=== PATIENT | male | born 1985 | race American Indian/Alaskan Native ===

== ENCOUNTER 2017-03-18 17:07 | Emergency (ER) | payer SELFPAY ==
--- NOTE | 2017-03-18 21:23 | Emergency Department Report ---
HPI - General Chief Complaint: Upper Respiratory Infection Time Seen by Provider: 03/18/17 21:19 - HPI HPI: Patient here complaining of flulike symptoms 3 days. Also complaining of nonproductive cough. Denies any fever but reports chills. Complaining of body aches. He is also complaining of left flank pain with painful urination but denies any blood in his urine. reports bilateral ear pain. Denies any chest pain or shortness of breath. Pain is 6 out of 10 generalized and achy. Denies any headache. The counter cough and cold without any results. Denies any abdominal pain or nausea or vomiting ED Past Medical Hx - Past Medical History Previous Medical History?: No - Surgical History Past Surgical History?: No - Family History Family history: no significant - Social History Smoking Status: Current Every Day Smoker Substance Use Type: Alcohol - Medications Home Medications: Home Medications Medication Instructions Recorded Confirmed Last Taken Type Cetirizine HCl [ZyrTEC] 10 mg PO QDAY 10 Days #10 capsule 03/18/17 Unknown Rx Fluticasone [Flonase] 1 spray NS QDAY 10 Days #1 bottle 03/18/17 Unknown Rx Ibuprofen [Motrin 600 MG tab] 600 mg PO Q8H PRN #12 tablet 03/18/17 Unknown Rx guaiFENesin/CODEINE [Robitussin AC] 10 ml PO QHS PRN #50 ml 03/18/17 Unknown Rx ED Review of Systems ROS: Stated complaint: FLU LIKE SYMPTOMS Other details as noted in HPI Comment: All other systems reviewed and negative Constitutional: chills. denies: fever ENT: ear pain, congestion. denies: throat pain, dental pain, epistaxis Respiratory: cough. denies: orthopnea, shortness of breath, SOB with exertion, SOB at rest, stridor, wheezing Cardiovascular: denies: chest pain, palpitations, dyspnea on exertion, edema, syncope, paroxysmal nocturnal dyspnea Gastrointestinal: denies: abdominal pain, nausea, vomiting, diarrhea, constipation Genitourinary: dysuria. denies: frequency, hematuria, discharge, testicular pain, testicular mass Musculoskeletal: other (reports left flank pain). denies: back pain, arthralgia Skin: denies: rash Neurological: denies: headache, abnormal gait, vertigo Physical Exam - Physical Exam Vital Signs: Vital Signs 03/18/17 17:34 Temperature 99.8 F H Pulse Rate 89 Respiratory 18 Rate Blood Pressure 124/82 O2 Sat by Pulse 99 Oximetry Vital Signs 03/18/17 03/18/17 17:34 21:39 Temperature 99.8 F H Pulse Rate 89 Respiratory 18 18 Rate Blood Pressure 124/82 O2 Sat by Pulse 99 Oximetry General: This is a 31-year-old male well-nourished well-developed in no acute distress. Physical Exam: Head: Normocephalic, atraumatic, no abrasion, no bruising and no contusion. Eyes: Biateral pupils equal and reactive to light, bilateral EOM intact.. Bilateral conjunctival and sclera without injection, normal accommodation. No nystagmus Mouth: Moist, no pharyngeal exudate or erythema. No peritonsillar abscesses. Uvula is midline and oral airways patent. Ears: Bilateral TM congested without erythema. Bilateral EAC without any redness swelling or drainage. No mastoid bone tenderness Nose: Bilateral nasal turbinates congested with erythema and clear drainage. Maxillary and frontal sinuses non-tender to palpate. Neck: Supple, No Cervical adenopathy, full range of motion and no C-spine tenderness. No swelling or tracheal deviation normal reflexes Cardiovascular: S1, S2. Regular rate and rhythm. No murmur. Capillary refill is less then 3 seconds. Lungs: Clear to auscultate bilaterally. No rhonchi, wheezes or rales. No chest wall tenderness. No chest contusion. No bruising to chest. Dry cough MSK: Strength 5/5 in all extremities. No joint deformity or crepitus. Normal inspection. Full range of motion to all extremities. No laceration, abrasion or ecchymotic area noted. Ambulates without any difficulties Abdomen: Non-tender to palpate in all quadrants, no guarding or rebound tenderness, positive bowel sounds in all quadrants. No CVA tenderness. No hernia, bruit or mass. No rigidity or distention. Extremities: No clubbing, cyanosis or edema. +2 pulses. No neurovascular compromise Skin: Clean, dry and intact. No rash or lesions. Psych: Normal mood and behavior ED Course Vital Signs 03/18/17 17:34 Temperature 99.8 F H Pulse Rate 89 Respiratory 18 Rate Blood Pressure 124/82 O2 Sat by Pulse 99 Oximetry Vital Signs 03/18/17 03/18/17 17:34 21:39 Temperature 99.8 F H Pulse Rate 89 Respiratory 18 18 Rate Blood Pressure 124/82 O2 Sat by Pulse 99 Oximetry - Reevaluation(s) Reevaluation #1: 03/18/17 22:50 Patient given Motrin 800 mg of body aches and low-grade fever. He is able to tolerate oral liquids without any difficulties ED Medical Decision Making - Lab Data Lab Results 03/18/17 Range/Units 21:35 Urine Color Yellow (Yellow) Urine Turbidity Clear (Clear) Urine pH 6.0 (5.0-7.0) Ur Specific [place] 1.030 (1.003-1.030) Urine Protein <15 mg/dl (Negative) mg/dL Urine Glucose (UA) Neg (Negative) mg/dL Urine Ketones Neg (Negative) mg/dL Urine Blood Sm (Negative) Urine Nitrite Neg (Negative) Urine Bilirubin Neg (Negative) Urine Urobilinogen 4.0 (<2.0) mg/dL Ur Leukocyte Esterase Neg (Negative) Urine WBC (Auto) 1.0 (0.0-6.0) /HPF Urine RBC (Auto) 18.0 (0.0-6.0) /HPF U Epithel Cells (Auto) < 1.0 (0-13.0) /HPF Urine Mucus Few /HPF Urine culture pending - Medical Decision Making ED course: Pt here reports upper respiratory infection with urinary burning and left flank pain. Patient urinalysis negative for any infection. Small amount of blood. Patient denies any STD exposure or concern for STD. Urine culture sent and pending. Patient also found to have upper respiratory infection with cough and congestion. I discussed with patient that he has a viral upper respiratory tract infection with cough and congestion and his urinalysis was negative for infection. I discussed with him he will need to follow up with his primary care in 3-5 days and if he does not have one to follow-up with outside medical center. Patient received Motrin 800 mg and ER which relieved is body aches and also able to tolerate oral liquids in emergency room without any nausea or vomiting. Patient discharged home with prescription for Zyrtec, Motrin, Flonase and cough medicine with codeine. Critical care attestation.: If time is entered above; I have spent that time in minutes in the direct care of this critically ill patient, excluding procedure time. ED Disposition Clinical Impression: Upper respiratory infection with cough and congestion, Otalgia, bilateral, Dysuria, Musculoskeletal pain Disposition: [id number] TO HOME OR SELFCARE Is pt being admited?: No Does the pt Need Aspirin: No Condition: Stable Instructions: Upper Respiratory Infection (ED), Acute Cough (ED), Cold Symptoms (ED), Earache (ED), Dysuria (ED), Musculoskeletal Pain (ED) Additional Instructions: Please increase her fluid intake to include water, orange juice and cranberry juice to 2-3 L of liquids per day. Motrin for fever and/or pain Takes Zyrtec and Flonase which will help to relieve her congestion Follow-up with the primary care physician in 3-5 days and if he do not have one follow[facility]up at [facility] Prescriptions: guaiFENesin/CODEINE [Robitussin AC] 10 ml PO QHS PRN #50 ml PRN Reason: Cough Cetirizine HCl [ZyrTEC] 10 mg PO QDAY 10 Days #10 capsule Fluticasone [Flonase] 1 spray NS QDAY 10 Days #1 bottle Ibuprofen [Motrin 600 MG tab] 600 mg PO Q8H PRN #12 tablet PRN Reason: Pain Referrals: [facility] [Outside] - 3-5 Days Forms: Work/School Release Form(ED)
[2017-03-18] MEDS ORDERED: MOTRIN PO ONE (21:25)
[2017-03-18 22:18] LABS: Bilirubin,Urine NEG (Negative); Blood,Urine SM (Negative); Color,Urine Yellow (Yellow); Mucus,Urine FEW /HPF; Nitrite,Urine NEG (Negative); Protein,Urine <15 mg/dL mg/dL (Negative)
[2017-03-18 23:24] VITALS: BP 123/89
== END 2017-03-18 23:29 | disposition home or self-care (01) ==
LOC: ED 17:07
DX: J06.9 Acute upper respiratory infection, unspecified (principal); H92.03 Otalgia, bilateral; R30.0 Dysuria; M79.1 Myalgia; F17.200 Nicotine dependence, unspecified, uncomplicated
CPT/HCPCS: 81001; 87086; 99283